=== PATIENT | male | born 1975 | race Caucasian/White ===

== ENCOUNTER 2017-02-01 20:18 | Emergency (ER) | payer SELFPAY ==
[~2017-02-01] VITALS: Ht 170.2 cm; Wt 74.8 kg
[2017-02-01 20:20] VITALS: BP 157/95
--- NOTE | 2017-02-02 01:09 | NUR ---
Patient to bed 07.
[2017-02-02 01:18] VITALS: BP 145/94
--- NOTE | 2017-02-02 01:22 | NUR ---
41Y/M PT. PRESENTS TO ED WITH C/O BURNING UPON URINATION X3 DAYS. PT. STATED HAVING BURNING UPON URINATION, NO FEVER, ALSO STATES BOTH EYES REDNESS X 3 DAYS. NO MEDICAL HX. AAOX4 , AMBULATORY WITH STEADY GAIT. SKIN WARM AND DRY. RESPIRATIONS ROOM AIR, EVEN AND UNLABORED. BOTH EYES REDNESS. VSS, NO S/SX OF DISTRESS AT THIS TIME. ER MD MADE AWARE OF PT. STATUS.
--- NOTE | 2017-02-02 01:34 | NUR ---
Patient moved to bed 08.
[2017-02-02 01:47] LABS: APPEARANCE,URINE CLOUDY (CLEAR); BILIRUBIN,URINE NEGATIVE (NEGATIVE); BLOOD, URINE 2+ (NEGATIVE); COLOR,URINE YELLOW (YELLOW); LEUKOCYTE ESTERASE ,URINE NEGATIVE (NEGATIVE); NITRITE, URINE NEGATIVE (NEGATIVE); PH,URINE 5.5 (5.0-9.0); PROTEIN,URINE TRACE (NEGATIVE); UGLUCOSE NEGATIVE (NEGATIVE); UROBILINOGEN,URINE 0.2 EU/dL (0.2 - 1)
[2017-02-02 01:59] LABS: WBC,URINE 0-5 (RARE) /HPF (0-5)
[2017-02-02 02:00] LABS: BACTERIA,URINE OCCASSIONAL /HPF (None Seen); CALCIUM OXALATE CRYSTALS,UR 0-10 /HPF (None Seen); RBC,URINE 3-10 (FEW) /HPF (0-5); SQUAMOUS EPITHELIAL CELL,UR 0-3 (FEW) /LPF (0-3 (FEW)); URINE AMORPHOUS URATE 1+ /HPF (None Seen)
--- NOTE | 2017-02-02 02:20 | NUR ---
PATIENT LEFT WITHOUT BEING SEEN BY DR. DR. PRADO. NO FURTHER CARE PROVIDED FOR PATIENT.
== END 2017-02-02 02:20 | disposition left against medical advice (07) ==
LOC: MED 20:18
DX: H57.13 Ocular pain, bilateral (principal); R10.9 Unspecified abdominal pain; Z53.21 Procedure and treatment not carried out due to patient leaving prior to being seen by health care provider
CPT/HCPCS: 81001